=== PATIENT | male | born 1960 | race Caucasian/White ===

== ENCOUNTER 2016-08-01 10:27 | Observation (INO) | payer OTHER ==
--- NOTE | 2016-08-01 11:01 | ER Document Report ---
ED Medical Screen (RME) - General Mode of Arrival: Wheelchair Information source: Patient TRAVEL OUTSIDE OF THE [place] IN LAST 30 DAYS: No - HPI Patient complains to provider of: Right rib pain Onset: Other - 1.5 weeks ago Onset/Duration: Constant, Worse Associated Symptoms: Other - see notes above Exacerbated by: Deep breathing - Related Data Smoking: Non-smoker Frequency of alcohol use: None Drug Abuse: None - General Chief Complaint: Chest Pain > 30 Stated Complaint: ABDOMINAL PAIN Time Seen by Provider: 08/01/16 10:54 Notes: 56-year-old male with history of depression and PTSD presents to the ED complaining of constant and gradually worsening sharp right rib pain that started 1.5 weeks ago. Patient reports that he fell in his boat 2 weeks ago, but does not believe that it is associated with his current pain. Patient did not experience any pain immediately after falling. Patient has never experienced pain like this before. Pain is exacerbated with deep breathing. Patient also complains of mild shortness of breath. (BEBETO TORRES) - Related Data Allergies/Adverse Reactions: No Known Allergies Allergy (Verified 08/01/16 10:33) Past Medical History - General Information source: Patient - Social History Cigarette use (# per day): No Chew tobacco use (# tins/day): No Frequency of alcohol use: None Drug Abuse: None Family history: Reviewed & Not Pertinent - Past Medical History Cardiac Medical History: Reports: Hx Hypercholesterolemia Pulmonary Medical History: Reports: Hx Pneumonia Endocrine Medical History: Reports: Hx Diabetes Mellitus Type 2 Renal/ Medical History: Denies: Hx Peritoneal Dialysis GI Medical History: Reports: Hx Gastroesophageal Reflux Disease Musculoskeltal Medical History: Reports Hx Arthritis Psychiatric Medical History: Reports: Hx Depression, Hx Post Traumatic Stress Disorder Past Surgical History: Reports: Hx Cholecystectomy, Hx Orthopedic Surgery - BACK X2 - Immunizations Hx Diphtheria, Pertussis, Tetanus Vaccination: Yes Review of Systems - Review of Systems Constitutional: No symptoms reported EENT: No symptoms reported Cardiovascular: No symptoms reported Respiratory: See HPI, Short of breath Gastrointestinal: No symptoms reported Genitourinary: No symptoms reported Male Genitourinary: No symptoms reported Musculoskeletal: See HPI, Other - right rib pain Skin: No symptoms reported Hematologic/Lymphatic: No symptoms reported Neurological/Psychological: No symptoms reported -: Yes All other systems reviewed and negative Physical Exam - General General appearance: Alert, Other - appears uncomfortable - Respiratory Respiratory status: No respiratory distress Chest status: Pain on movement, Pain with deep breathing Breath sounds: Normal Chest palpation: Normal - No tenderness to palpation of the left chest wall. Patient is in obvious pain with deep breathing and movement of upper torso. No lesions or signs of shingles noted. - Cardiovascular Rhythm: Regular Heart sounds: Normal auscultation Murmur: No Friction rub: No Gallop: None auscultated - Abdominal Inspection: Normal Distension: No distension Tenderness: Tender - mild LUQ tenderness to palpation Course - Re-evaluation Re-evalutation: 08/01/16 11:02 Concern for pneumothorax and possible splenic laceration or contusion due to fall. Will check chest x-ray and CAT scan. (DELPHINE CEJA) - Vital Signs Vital signs: Temp Pulse Resp BP Pulse Ox 98.2 F 81 18 149/108 H 98 08/01/16 10:35 08/01/16 10:35 08/01/16 10:35 08/01/16 10:35 08/01/16 10:35 Scribe Documentation - Scribe Written by Gaelibe:: Agustin De Leon, 08/01/2016 1156 acting as scribe for :: Irma
[2016-08-01] MEDS ORDERED: HYDROCODONE/ACETAMINOPHEN 5-325 MG TABLET PO ONE (11:03)
--- NOTE | 2016-08-01 11:13 | EKG REPORT ---
SEVERITY:- NORMAL ECG - SINUS RHYTHM : Confirmed by: Luis Proctor 01-Aug-2016 11:11:24
[2016-08-01 12:00] LABS: APPEARANCE,URINE SLIGHTLY-CLOUDY; BILIRUBIN,URINE NEGATIVE (NEGATIVE); GLUCOSE, URINE NEGATIVE (NEGATIVE); KETONES,URINE NEGATIVE (NEGATIVE); LEUKOCYTE ESTERASE,URINE NEGATIVE (NEGATIVE); NITRITE,URINE NEGATIVE (NEGATIVE); PROTEIN,URINE NEGATIVE (NEGATIVE); URINE SPECIFIC GRAVITY 1.027; UROBILINOGEN,URINE NEGATIVE mg/dL (<2.0)
[2016-08-01] MEDS ORDERED: ONDANSETRON HCL INJ/PF 4 MG/2 ML SDV IV ONE (12:10)
[2016-08-01] MEDS ORDERED: MORPHINE SULFATE 10 MG/ML INJ IV ONE (12:10)
[2016-08-01 12:12] LABS: ABSOLUTE EOSINOPHILS # (AUTO) 0.1 10^3/uL (0.0-0.6); ABSOLUTE LYMPHOCYTES (AUTO) 2.1 10^3/uL (0.5-4.7); ABSOLUTE MONOCYTES (AUTO) 0.6 10^3/uL (0.1-1.4); ABSOLUTE NEUT (AUTO) 3.6 10^3/uL (1.7-8.2); BASOPHILS % (AUTO) 0.4 % (0-2); HEMATOCRIT 40.8 % (37.9-51.0); HEMOGLOBIN 13.3 g/dL (13.5-17.0); HGB HCT DIFFERENCE -0.9; LYMPHOCYTES % (AUTO) 32.8 % (13-45); MEAN CORPUSCULAR HEMOGLOBIN 29.2 pg (27.0-33.4); MEAN CORPUSCULAR HGB CONC 32.6 g/dL (32.0-36.0); MEAN CORPUSCULAR VOLUME 90 fl (80-97); MONOCYTES % (AUTO) 9.3 % (3-13); RED BLOOD COUNT 4.55 10^6/uL (4.35-5.55); RED CELL DISTRIBUTION WIDTH 13.8 % (11.5-14.0); SEGMENTED NEUTROPHILS % (AUTO) 55.5 % (42-78); WHITE BLOOD COUNT 6.4 10^3/uL (4.0-10.5)
[2016-08-01 12:16] LABS: PROTHROMBIN TIME 12.8 SEC (11.4-15.4)
[2016-08-01 12:37] LABS: ALANINE AMINOTRANSFERASE 45 U/L (21-72); ALBUMIN 4.5 g/dL (3.5-5.0); ALKALINE PHOSPHATASE 84 U/L (38-126); ANION GAP 14 (5-19); ASPARTATE AMINO TRANSFERASE 29 U/L (17-59); BILIRUBIN,DIRECT 0.4 mg/dL (0.0-0.4); BILIRUBIN,TOTAL 0.7 mg/dL (0.2-1.3); BLOOD UREA NITROGEN 19 mg/dL (7-20); CALCIUM 9.7 mg/dL (8.4-10.2); CARBON DIOXIDE 25 mmol/L (22-30); CHLORIDE 104 mmol/L (98-107); CREATINE KINASE 35 U/L (55-170); GLUCOSE 103 mg/dL (75-110); LIPASE 46.7 U/L (23-300); POTASSIUM 4.5 mmol/L (3.6-5.0); SODIUM 143.4 mmol/L (137-145); TOTAL PROTEIN 7.1 g/dL (6.3-8.2)
[2016-08-01] MEDS ORDERED: HYDROMORPHONE HCL INJ/PF 2 MG/ML AMPULE IV ONE ×3 (12:45→17:01)
[2016-08-01 12:49] LABS: CREATINE KINASE MB 0.57 ng/mL (<4.55)
[2016-08-01 12:53] LABS: TROPONIN I < 0.012 ng/mL
--- NOTE | 2016-08-01 13:10 | ER Document Report ---
ED GI/ - General Chief Complaint: Chest Pain > 30 Stated Complaint: ABDOMINAL PAIN Time Seen by Provider: 08/01/16 10:54 Mode of Arrival: Wheelchair Information source: Patient Notes: 56-year-old male past medical history as recorded who presents today with pain to his left lower lateral ribs starting to slowly progressing in intensity for 1 week. Patient denies any real shortness of breath. He denies any nausea, vomiting, or fevers. He states it feels better when he sits up or and is more painful when he moves side to side or lays flat. Patient has had no recent trauma except for when he fell on 2 weeks ago on . He denies any pain at that time. Patient denies any pain to his epigastric area, or left upper quadrant of the abdomen. Patient states some mild shortness of breath. He denies any radiation of the pain to his back. TRAVEL OUTSIDE OF THE [place] IN LAST 30 DAYS: No - HPI Patient complains to provider of: Other - Left lower rib pain Onset: Other - See above Timing/Duration: Gradual Quality of pain: Achy, Burning Severity at maximum: Severe Severity in ED: Severe Pain Level: 4 Location: Chest pain Sexual history: Inactive Associated symptoms: Other - 08/01/16 13:04 Exacerbated by: Other - 08/01/16 13:04 Relieved by: Denies Similar symptoms previously: No Recently seen / treated by doctor: No - Related Data Allergies/Adverse Reactions: No Known Allergies Allergy (Verified 08/01/16 10:33) Past Medical History - General Information source: Patient - Social History Smoking Status: Unknown if Ever Smoked Cigarette use (# per day): No Chew tobacco use (# tins/day): No Frequency of alcohol use: None Drug Abuse: None Family History: Reviewed & Not Pertinent Patient has suicidal ideation: No Patient has homicidal ideation: No - Past Medical History Cardiac Medical History: Reports: Hx Hypercholesterolemia Denies: Hx Coronary Artery Disease, Hx Heart Attack, Hx Hypertension Pulmonary Medical History: Reports: Hx Pneumonia Denies: Hx Asthma, Hx Bronchitis, Hx COPD Neurological Medical History: Denies: Hx Cerebrovascular Accident, Hx Seizures Endocrine Medical History: Reports: Hx Diabetes Mellitus Type 2 Renal/ Medical History: Denies: Hx Peritoneal Dialysis GI Medical History: Reports: Hx Gastroesophageal Reflux Disease Musculoskeltal Medical History: Reports Hx Arthritis Psychiatric Medical History: Reports: Hx Depression, Hx Post Traumatic Stress Disorder Past Surgical History: Reports: Hx Cholecystectomy, Hx Orthopedic Surgery - BACK X2. Denies: Hx Pacemaker - Immunizations Hx Diphtheria, Pertussis, Tetanus Vaccination: Yes Review of Systems - Review of Systems Constitutional: denies: Fever EENT: denies: Eye discharge, Nose discharge Cardiovascular: denies: Palpitations, Heart racing Respiratory: Short of breath Gastrointestinal: denies: Abdomen distended, Vomiting Genitourinary: denies: Dysuria Musculoskeletal: denies: Leg swelling Skin: Other - no hives. denies: Rash Neurological/Psychological: Other - no slurred speech -: Yes All other systems reviewed and negative Physical Exam - Vital signs Vitals: Temp Pulse Resp BP Pulse Ox 98.2 F 81 18 149/108 H 98 08/01/16 10:35 08/01/16 10:35 08/01/16 10:35 08/01/16 10:35 08/01/16 10:35 Notes: Reviewed vital signs and nursing note as charted by RN. CONSTITUTIONAL: Alert and oriented and responds appropriately to questions. Patient appears to be in intermittent acute pain holding his left lateral lower ribs. HEAD: Normocephalic; atraumatic EYES: Sclera nonicteric CARD: Regular rate and rhythm; no murmurs, no clicks, no rubs, no gallops; symmetric distal pulses RESP: Normal chest excursion without splinting or tachypnea; patient has no obvious tenderness to the left lower lateral ribs, no crepitus, no swelling, and no erythema; breath sounds clear and equal bilaterally; no wheezes, no rhonchi, no rales ABD/GI: Normal bowel sounds; non-distended; soft, non-tender to deep palpation of all 4 quadrants of the abdomen, no rebound, no guarding; no palpable organomegaly or masses BACK: The back appears normal and is non-tender to palpation, there is no CVA tenderness EXT: Normal ROM in all joints; non-tender to palpation; no cyanosis, no effusions, no edema SKIN: Normal color for age and race; warm; dry; good turgor; capillary refill < 2 seconds; no acute lesions noted NEURO: Moves all extremities equally; Motor and sensory function intact PSYCH: The patient's mood and manner are appropriate. Grooming and personal hygiene are appropriate. Course - Re-evaluation Re-evalutation: 08/01/16 13:12 Given the above history and physical examination we will order cardiac panel, portable x-ray of the chest, and a CT scan of the chest abdomen and pelvis. Patient has no obvious tenderness to his left upper quadrant or epigastric region. He does not have a gallbladder. Patient's pain came on slowly over a week and has no tenderness or radiation to his back. I believe it does make aortic dissection less likely. However, given the amount of pain that the patient is suffering, CT scans have been ordered. Pain medications have been given. Vital signs are stable, the patient is not tachycardic, he is not hypoxic, and blood pressure was 150/95. EKG showed a heart rate of 81, normal sinus rhythm, normal axis, no obvious ST elevation or depression. 08/01/16 13:35 Portable x-ray of the chest shows no obvious abnormalities. 08/01/16 15:[address] scans have been performed they have not yet been interpreted. I have called the radiology room to try to determine why this is. 08/01/16 16:33 CT scans as recorded. Patient's pain has returned once again. He is still clutching his left side of his lateral lower ribs and screaming in pain. He states it is intermittent and occurs every 5 minutes. No flank pain. No obvious hydronephrosis on CT scan. I have called the hospitalist for possible admission for pain control as I am unable to determine the patient's etiology of pain. - Vital Signs Vital signs: Temp Pulse Resp BP Pulse Ox 98.2 F 81 18 149/108 H 98 08/01/16 10:35 08/01/16 10:35 08/01/16 10:35 08/01/16 10:35 08/01/16 10:35 - Laboratory Result Diagrams: 08/01/16 11:56 08/01/16 11:56 Laboratory results interpreted by me: 08/01/16 08/01/16 11:56 11:56 Hgb 13.3 L Creatine Kinase 35 L Discharge - Discharge Clinical Impression: Rib pain on left side Condition: Fair Disposition: ADMITTED OBSERVATION Unit Admitted: Telemetry
--- NOTE | 2016-08-01 13:27 | RADIOLOGY REPORT (SQ) ---
EXAM DESCRIPTION: CHEST SINGLE VIEW COMPLETED DATE/TIME: 08/01/2016 12:59 pm REASON FOR STUDY: 14, stat; left chest pain with sob COMPARISON: 10/04/2011 EXAM PARAMETERS: NUMBER OF VIEWS: One view. TECHNIQUE: Single frontal radiographic view of the chest acquired. RADIATION DOSE: NA LIMITATIONS: None. FINDINGS: LUNGS AND PLEURA: No opacities, masses or pneumothorax. No pleural effusion. MEDIASTINUM AND HILAR STRUCTURES: No masses. Contour normal. HEART AND VASCULAR STRUCTURES: Heart normal in size. Normal vasculature. BONES: No acute findings. HARDWARE: EKG leads overlie the chest OTHER: No other significant finding. IMPRESSION: NO ACUTE RADIOGRAPHIC FINDING IN THE CHEST. TECHNICAL DOCUMENTATION: JOB ID: [id number]
--- NOTE | 2016-08-01 15:56 | RADIOLOGY REPORT (SQ) ---
EXAM DESCRIPTION: CTA CHEST COMPLETED DATE/TIME: 08/01/2016 1:31 pm REASON FOR STUDY: 14, left rib pain COMPARISON: None. TECHNIQUE: CT scan of the chest performed using helical scanning technique with dynamic intravenous contrast injection. Images reviewed with lung, soft tissue and bone windows. Reconstructed coronal and sagittal MPR images reviewed. Additional 3 dimensional post-processing performed to develop Maximal Intensity Projection images (NH P). All images stored on PACS. All CT scanners at this facility use dose modulation, iterative reconstruction, and/or weight based d osing when appropriate to reduce radiation dose to as low as reasonably achievable (ALARA). [facility]: Dose Right [facility]: CareDose [facility]: Dose Right [facility]: Teradose 4D [facility]: vWise CONTRAST TYPE AND DOSE: contrast/concentration: Isovue 370.00 mg/ml; Total Contrast Delivered: 95.0 ml; Total Saline Delivered: 80.0 ml RENAL FUNCTION: Creatinine 0.9 BUN 19 RADIATION DOSE: Up-to-date CT equipment and radiation dose reduction techniques were employed. CTDIv ol: 15.2 - 19.8 mGy. DLP: 2512 mGy-cm. . LIMITATIONS: None. FINDINGS: LUNGS AND PLEURA: No masses, infiltrates, pneumothorax. No pleural effusions, calcificati ons. AORTA AND GREAT VESSELS: No aneurysm or dissection. HEART: No pericardial effusion. PULMONARY ARTERIES: No emboli visualized in the main pulmonary arteries or the segmental branches. HILAR AND MEDIASTINAL STRUCTURES: No identified masses or abnormal nodes. HARDWARE: None in the chest. UPPER ABDOMEN: See separate report of the CT of the abdomen. THYROID AND OTHER SOFT TISSUES: No masses. No adenopathy. BONES: No acute or significant finding. 3D MIPS: Confirm above findings. OTHER: No other significant finding. IMPRESSION: NORMAL CTA OF THE CHEST. NO PULMONARY EMBOLI. TECHNICAL DOCUMENTATION: JOB ID: [id number] Quality ID # [id number]: Final reports with documentation of one or more dose reduction techniques (e.g., Au tomated exposure control, adjustment of the mA and/or kV according to patient size, use of iterative reconstruction technique) 2010 [employer]- All Rights Reserved
--- NOTE | 2016-08-01 16:04 | RADIOLOGY REPORT (SQ) ---
EXAM DESCRIPTION: CT ABD/PELVIS WITH IV ONLY COMPLETED DATE/TIME: 08/01/2016 1:31 pm REASON FOR STUDY: fall, LUQ pain COMPARISON: None. TECHNIQUE: CT scan of the abdomen and pelvis performed using helical scanning technique with dynamic intravenous contrast injection. No oral contrast. Images reviewed with lung, soft tissue, and bone windows. Reconstructed coronal and sagittal MPR images reviewed. Delayed images for evaluation of the urinary system also acquired. All images stored on PACS. All CT scanners at this facility use dose modulation, iterative reconstruction, and/or weight based d osing when appropriate to reduce radiation dose to as low as reasonably achievable (ALARA). [facility]: Dose Right [facility]: CareDose [facility]: Dose Right [facility]: Teradose 4D [facility]: [employer] CONTRAST TYPE AND DOSE: 95 cc Isovue 370- low osmolar. RENAL FUNCTION: BUN 19 creatinine 0.9 RADIATION DOSE: Total DLP: 2511.6 mGy*cm, total for both studies. LIMITATIONS: None. FINDINGS: LOWER CHEST: See separate report of the CT of the chest. LIVER: Normal size. No masses or dilated ducts. SPLEEN: Normal size. No focal lesions. PANCREAS: No masses. No significant calcifications. No adjacent inflammation or peripancreatic fluid collections. Pancreatic duct not dilated. GALLBLADDER: Surgically absent. ADRENAL GLANDS: No significant masses or asymmetry. RIGHT KIDNEY AND URETER: No solid masses. No significant calcifications. No hydronephrosis or hyd roureter. LEFT KIDNEY AND URETER: No solid masses. No significant calcifications. No hydronephrosis or hydr oureter. AORTA AND VESSELS: No aneurysm. No dissection. Renal arteries, SMA, celiac without stenosis. RETROPERITONEUM: No retroperitoneal adenopathy, hemorrhage or masses. BOWEL AND PERITONEAL CAVITY: No masses or inflammatory changes. No free fluid or peritoneal masses. APPENDIX: Not identified. PELVIS: The urinary bladder is normal. Prostate gland and seminal vesicles appear normal. ABDOMINAL WALL: No masses. No hernias. BONES: No significant or acute findings. OTHER: No other significant finding. IMPRESSION: NO SIGNIFICANT OR ACUTE FINDING IN THE ABDOMEN OR PELVIS ON CT SCAN WITH IV CONTRAST. TECHNICAL DOCUMENTATION: JOB ID: [id number] Quality ID # [id number]: Final reports with documentation of one or more dose reduction techniques (e.g., Au tomated exposure control, adjustment of the mA and/or kV according to patient size, use of iterative reconstruction technique) 2010 [facility] [employer]- All Rights Reserved
[2016-08-01] MEDS ORDERED: ONDANSETRON HCL INJ/PF 4 MG/2 ML SDV IV PRN (16:55)
[2016-08-01] MEDS ORDERED: ACETAMINOPHEN 325 MG TABLET PO PRN (16:55)
--- NOTE | 2016-08-01 17:07 | PDOC H&P ---
History of Present Illness Admission Date/PCP: 08/01/16 16:49 NO LOCALMD Patient complains of: Left flank pain History of Present Illness: TRINO FARRAR is a 56 year old male with past medical history of degenerative disc disease, chronic lumbar spine pain presents with one-week worsening left flank pain. Today his pain has become unbearable and he presented to the emergency department. Evaluation in the emergency department to include lab work, urinalysis, CT scan chest/abdomen/pelvis are all unremarkable. Patient is noted to be writhing in pain in the emergency department and states she will not go home until he understands why he is in such severe pain. She has had prior lumbar spine surgery in [facility]. Past Medical History Cardiac Medical History: Reports: Hyperlipidema Denies: Coronary Artery Disease, Myocardial Infarction, Hypertension Pulmonary Medical History: Reports: Pneumonia Denies: Asthma, Bronchitis, Chronic Obstructive Pulmonary Disease (COPD) Neurological Medical History: Denies: Seizures Endocrine Medical History: Reports: Diabetes Mellitus Type 2 GI Medical History: Reports: Gastroesophageal Reflux Disease Musculoskeltal Medical History: Reports: Arthritis Psychiatric Medical History: Reports: Depression, Post Traumatic Stress Disorder Hematology: Denies: Anemia Past Surgical History Past Surgical History: Reports: Cholecystectomy, Orthopedic Surgery - BACK X2 Denies: Pacemaker Social History Information Source: Patient Lives with: Family Smoking Status: Unknown if Ever Smoked Frequency of Alcohol Use: None Hx Recreational Drug Use: No Hx Prescription Drug Abuse: No - Advance Directive Resuscitation Status: Full Code Family History Family History: Reviewed & Not Pertinent Parental Family History Reviewed: Yes Children Family History Reviewed: Yes Sibling(s) Family History Reviewed.: Yes Medication/Allergy Allergies/Adverse Reactions: No Known Allergies Allergy (Verified 08/01/16 10:33) Review of Systems Constitutional: ABSENT: chills, fever(s), headache(s), weight gain, weight loss Eyes: ABSENT: visual disturbances Ears: ABSENT: hearing changes Cardiovascular: ABSENT: chest pain, dyspnea on exertion, edema, orthropnea, palpitations Respiratory: ABSENT: cough, hemoptysis Gastrointestinal: ABSENT: abdominal pain, constipation, diarrhea, hematemesis, hematochezia, nausea, vomiting Genitourinary: ABSENT: dysuria, hematuria Musculoskeletal: PRESENT: back pain. ABSENT: joint swelling Integumentary: ABSENT: rash, wounds Neurological: ABSENT: abnormal gait, abnormal speech, confusion, dizziness, focal weakness, syncope Psychiatric: ABSENT: anxiety, depression, homidical ideation, suicidal ideation Endocrine: ABSENT: cold intolerance, heat intolerance, polydipsia, polyuria Hematologic/Lymphatic: ABSENT: easy bleeding, easy bruising Physical Exam Vital Signs: Temp Pulse Resp BP Pulse Ox 98.2 F 81 18 149/108 H 98 08/01/16 10:35 08/01/16 10:35 08/01/16 10:35 08/01/16 10:35 08/01/16 10:35 PHYSICAL EXAM: GENERAL: Appears well, no acute distress HEENT: Normocephalic, no scleral icterus, conjunctiva clear, EOEM intact, PERRLA , moist mucous membranes NECK: trachea midline, no thyromegally RESPIRATORY: Clear to auscultation, no wheezes/rhonchi CARDIAC: Regular rate and rhythm, no murmur/miko/rub ABDOMEN: Soft, no distension, no tenderness, no guarding, normal bowel sounds, negative Soni sign RECTAL: deferred : deferred EXTREMITIES: No edema, cyanosis, clubbing MUSCULOSKELETAL: Reproducible tenderness over left thoracic paraspinous muscles , pain with range of motion thoracic spine VASCULAR: normal peripheral pulses NEUROLOGIC: Alert, oriented to person/place/time, normal speech, cranial nerves grossly intact, 5/5 strength in all extremities, tactile sensation intact in all extremities SKIN: No rash, no wounds, no worrisome skin lesions. Specifically no evidence of zoster over thoracic or lumbar spine PSYCHIATRIC: Normal mood, normal affect Results Laboratory Results: Labs- All tests 24 hr 08/01/16 08/01/16 08/01/16 11:40 11:56 11:56 WBC 6.4 RBC 4.55 Hgb 13.3 L Hct 40.8 MCV 90 MCH 29.2 MCHC 32.6 RDW 13.8 Plt Count 186 Seg Neutrophils % 55.5 Lymphocytes % 32.8 Monocytes % 9.3 Eosinophils % 2.0 Basophils % 0.4 Absolute Neutrophils 3.6 Absolute Lymphocytes 2.1 Absolute Monocytes 0.6 Absolute Eosinophils 0.1 Absolute Basophils 0.0 PT 12.8 INR 0.90 Sodium Potassium Chloride Carbon Dioxide Anion Gap BUN Creatinine Est GFR ( Amer) Est GFR (Non-Af Amer) Glucose Calcium Total Bilirubin Direct Bilirubin Indirect Bilirubin Neonat Total Bilirubin AST ALT Alkaline Phosphatase Creatine Kinase CK-MB (CK-2) Troponin I Total Protein Albumin Lipase Urine Color YELLOW Urine Appearance SLIGHTLY-CLOUDY Urine pH 5.0 Ur Specific [place] 1.027 Urine Protein NEGATIVE Urine Glucose (UA) NEGATIVE Urine Ketones NEGATIVE Urine Blood NEGATIVE Urine Nitrite NEGATIVE Urine Bilirubin NEGATIVE Urine Urobilinogen NEGATIVE Ur Leukocyte Esterase NEGATIVE Urine WBC (Auto) 1 Urine RBC (Auto) 1 Urine Mucus (Auto) FEW Urine Ascorbic Acid NEGATIVE 08/01/16 08/01/16 11:56 11:56 WBC RBC Hgb Hct MCV MCH MCHC RDW Plt Count Seg Neutrophils % Lymphocytes % Monocytes % Eosinophils % Basophils % Absolute Neutrophils Absolute Lymphocytes Absolute Monocytes Absolute Eosinophils Absolute Basophils PT INR Sodium 143.4 Potassium 4.5 Chloride 104 Carbon Dioxide 25 Anion Gap 14 BUN 19 Creatinine 0.90 Est GFR ( Amer) > 60 Est GFR (Non-Af Amer) > 60 Glucose 103 Calcium 9.7 Total Bilirubin 0.7 Direct Bilirubin 0.4 Indirect Bilirubin Not Reportable Neonat Total Bilirubin Not Reportable AST 29 ALT 45 Alkaline Phosphatase 84 Creatine Kinase 35 L CK-MB (CK-2) 0.57 Troponin I < 0.012 Total Protein 7.1 Albumin 4.5 Lipase 46.7 Urine Color Urine Appearance Urine pH Ur Specific [place] Urine Protein Urine Glucose (UA) Urine Ketones Urine Blood Urine Nitrite Urine Bilirubin Urine Urobilinogen Ur Leukocyte Esterase Urine WBC (Auto) Urine RBC (Auto) Urine Mucus (Auto) Urine Ascorbic Acid Impressions: Abdomen/Pelvis CT 08/01/16 11:01 IMPRESSION: NO SIGNIFICANT OR ACUTE FINDING IN THE ABDOMEN OR PELVIS ON CT SCAN WITH IV CONTRAST. Chest X-Ray 08/01/16 12:45 IMPRESSION: NO ACUTE RADIOGRAPHIC FINDING IN THE CHEST. Chest/Abdomen CTA 08/01/16 12:46 IMPRESSION: NORMAL CTA OF THE CHEST. NO PULMONARY EMBOLI. Assessment & Plan - Diagnosis (1) Rib pain on left side Is this a current diagnosis for this admission?: YesPlan: CTA of chest normal. CT abdomen/pelvis normal. Labs are normal. Urinalysis normal. Check sed rate and C-reactive protein. Check MRI of thoracic and lumbar spine. (2) Chronic pain Is this a current diagnosis for this admission?: YesPlan: Associated with lumbar disc disease. Patient has had multiple back surgeries in [facility]. As needed Percocet for now. - Time Time Spent: 50 to 70 Minutes Anticipated discharge: Home Within: within 24 hours
[2016-08-01 18:09] LABS: CREATINE KINASE MB 0.44 ng/mL (<4.55)
[2016-08-01] MEDS: OXYCODONE-ACETAMINOPHEN 5-325 MG TABLET PO PRN (18:10)
[2016-08-01 18:14] LABS: TROPONIN I < 0.012 ng/mL
--- NOTE | 2016-08-01 20:33 | RADIOLOGY REPORT (SQ) ---
EXAM DESCRIPTION: MRI THORACIC SPINE COMBO COMPLETED DATE/TIME: 08/01/2016 8:08 pm REASON FOR STUDY: mid-back/left flank pain COMPARISON: None. TECHNIQUE: Sagittal and Axial imaging includes T1, T2, STIR and gradient echo sequences. T1 post ga dolinium sequences. CONTRAST TYPE AND DOSE: 20 mL Prohance. RENAL FUNCTION: GFR > 60. LIMITATIONS: None. FINDINGS: LOCALIZER: No worrisome findings. ALIGNMENT: Normal. VERTEBRAE: Intact. BONE MARROW: Normal. No marrow replacement or reactive changes. HARDWARE: None in the spine. CORD: Normal in size and signal intensity. SOFT TISSUES: No soft tissue masses. THORACIC DISCS T1-T12: No significant spinal stenosis or exit foraminal stenosis. LOWER CERVICAL: Incompletely imaged. No significant spinal stenosis or exit foraminal stenosis. UPPER LUMBAR: Incompletely imaged. No significant spinal stenosis or exit foraminal stenosis. ENHANCEMENT: No abnormal enhancement. OTHER: No other significant finding. IMPRESSION: NORMAL MRI THORACIC SPINE. TECHNICAL DOCUMENTATION: JOB ID: [id number] [employer]- All Rights Reserved
--- NOTE | 2016-08-01 20:42 | RADIOLOGY REPORT (SQ) ---
EXAM DESCRIPTION: MRI LUMBAR SPINE COMBO COMPLETED DATE/TIME: 08/01/2016 8:07 pm REASON FOR STUDY: mid-back/left flank pain COMPARISON: 06/14/2014 CT 08/01/2016 TECHNIQUE: Sagittal and Axial imaging includes T1, T1 post gadolinium, T2, STIR and gradient echo se quences. Coronal T2/HASTE imaging. CONTRAST TYPE AND DOSE: 20 mL Multihance. RENAL FUNCTION: GFR > 60. LIMITATIONS: None. FINDINGS: VISUALIZED UPPER ABDOMEN: Limited evaluation. No acute or suspicious findings suggested. SEGMENTATION: No transitional anatomy. The lowest well-developed disc space is labeled L5-S1. ALIGNMENT: Anatomic. VERTEBRAE: Intact. No fractures. BONE MARROW: Reactive marrow edema L4-5. DISC SIGNAL: Normal. No significant abnormal signal or loss of height. POSTERIOR ELEMENTS: Generally intact. No pars defect evident. HARDWARE: None in the spine. CORD AND CONUS: Normal in size and signal intensity. Conus at the appropriate level. SOFT TISSUES: No aortic aneurysm seen. No bulky retroperitoneal adenopathy or mass. No paraspinal mas s or fluid. L1-L2: No significant spinal stenosis or exit foraminal stenosis. L2-L3: No significant spinal stenosis or exit foraminal stenosis. Disc prostheses. Pedicle screws. Left laminectomy. L3-L4: No significant spinal stenosis or exit foraminal stenosis. Disc prosthesis. Pedicle screws. Left laminectomy. L4-L5: New generalized protrusion since the previous study. Disc prosthesis. Pedicle screws. Narro wing of both exit foramina. L5-S1: No significant spinal stenosis or exit foraminal stenosis. LOWER THORACIC: Incompletely imaged. No stenosis seen. SACRUM: Visualized upper sacrum intact. ENHANCEMENT: No abnormal enhancement. OTHER: No other significant findings. IMPRESSION: Extensive postsurgical changes. There is a new generalize disc protrusion at L4-5 since the previous study. Narrowing of both exit f oramina. TECHNICAL DOCUMENTATION: JOB ID: [id number] [employer]- All Rights Reserved
[2016-08-01] MEDS: HYDROMORPHONE HCL 2 MG TABLET PO PRN (22:05)
[2016-08-01 23:53] LABS: CREATINE KINASE MB 0.57 ng/mL (<4.55)
[2016-08-01 23:57] LABS: TROPONIN I < 0.012 ng/mL
[2016-08-02] MEDS: OXYCODONE-ACETAMINOPHEN 5-325 MG TABLET PO PRN ×2 (00:06→07:15)
[2016-08-02] MEDS: HYDROMORPHONE HCL 2 MG TABLET PO PRN ×2 (03:44→09:43)
[2016-08-02] MEDS ORDERED: MAG HYDROX/AL HYDROX/SIMETH SUSP 30 ML UDCUP PO PRN (03:59)
[2016-08-02 05:44] LABS: CREATINE KINASE MB 0.72 ng/mL (<4.55)
[2016-08-02 05:46] LABS: TROPONIN I < 0.012 ng/mL
[2016-08-02 08:00] VITALS: BP 117/64
[2016-08-02] MEDS ORDERED: ENOXAPARIN SODIUM INJ 40 MG/0.4 ML DISP.SYRIN SUBCUT SCH (08:00)
--- NOTE | 2016-08-02 09:13 | PDOC DISCHARGE SUMMARY ---
General - Admit/Disc Date/PCP Admission Date/Primary Care Provider: 08/01/16 16:56 Dr. Maximino Tucker Discharge Date: 08/02/16 - Discharge Diagnosis (1) Rib pain on left side Is this a current diagnosis for this admission?: Yes (2) Chronic pain Is this a current diagnosis for this admission?: Yes - Additional Information Resuscitation Status: Full Code Discharge Diet: Regular Discharge Activity: Activity As Tolerated Home Medications: Bupropion HCl [Wellbutrin Sr] 150 mg PO Q12 08/01/16 Escitalopram Oxalate [Lexapro] 20 mg PO DAILY 08/01/16 Meloxicam [Mobic 15 mg Tablet] 15 mg PO DAILY 08/01/16 Omeprazole 20 mg PO DAILY 08/01/16 Ranitidine HCl [Zantac 150 mg Tablet] 150 mg PO BID 08/01/16 Simvastatin 40 mg PO DAILY 08/01/16 Sumatriptan Succinate [Imitrex 50 mg Tablet] 50 mg PO PRN PRN 08/01/16 Valsartan [Diovan 80 mg Tablet] 80 mg PO DAILY 08/01/16 Hydrocodone/Acetaminophen [Vicodin Es 7.5-300 mg Tablet] 1 tab PO Q6HP PRN #30 tablet 08/02/16 History of Present Illness Patient complains of: Left flank pain History of Present Illness: TRINO FARRAR is a 56 year old male with past medical history of degenerative disc disease, chronic lumbar spine pain presents with one-week worsening left flank pain. Today his pain has become unbearable and he presented to the emergency department. Evaluation in the emergency department to include lab work, urinalysis, CT scan chest/abdomen/pelvis are all unremarkable. Patient is noted to be writhing in pain in the emergency department and states she will not go home until he understands why he is in such severe pain. She has had prior lumbar spine surgery in [facility]. Hospital Course Hospital Course: Patient was admitted for evaluation of left flank pain. Laboratory workup was negative. Urinalysis is negative. CT angiogram of the chest was normal. CT of the abdomen and pelvis showed no acute process. MRI of the thoracic spine was normal. MRI of the lumbar spine showed L4-L5 disc protrusion and postoperative changes. Patient's pain is thought to be musculoskeletal in nature likely precipitated by recently holding grandchild frequently over the past several days. We will treat him symptomatically with pain medication. He is advised to avoid heavy lifting, bending, pushing, pulling. Follow-up with primary care provider. Physical Exam Vital Signs: Temp Pulse Resp BP Pulse Ox 97.4 F 56 L 16 117/64 100 08/02/16 07:59 08/02/16 07:59 08/02/16 07:59 08/02/16 07:59 08/02/16 07:59 Intake & Output 08/01/16 08/02/16 08/03/16 06:59 06:59 06:59 Intake Total 500 Balance 500 Weight 95.9 kg GENERAL: No acute distress HEENT: Conjunctiva clear, nonicteric, moist mucous membranes, no JVD, midline trachea RESPIRATORY: Clear to auscultation bilaterally, no wheezes, no rhonchi CARDIAC: Regular rate and rhythm, no murmurs/gallops/rubs ABDOMEN: Soft, nondistended, nontender, positive bowel sounds, no rebound, no guarding EXTREMETIES: No edema, cyanosis, clubbing NEUROLOGIC: Alert, oriented to person/place/time, CN's grossly intact, no focal deficits SKIN: No rash, wounds PSYCH: Normal mood, normal affect Results Laboratory Results: 08/01/16 17:20 C-Reactive Protein 11.5 H 08/01/16 08/01/16 08/01/16 17:20 17:20 23:17 Creatine Kinase 33 L 38 L CK-MB (CK-2) 0.44 Troponin I < 0.012 08/01/16 08/02/16 08/02/16 23:17 04:50 04:50 Creatine Kinase 45 L CK-MB (CK-2) 0.57 0.72 Troponin I < 0.012 < 0.012 Labs- Last Values WBC 6.4 10^3/uL (4.0-10.5) 08/01/16 11:56 RBC 4.55 10^6/uL (4.35-5.55) 08/01/16 11:56 Hgb 13.3 g/dL (13.5-17.0) L 08/01/16 11:56 Hct 40.8 % (37.9-51.0) 08/01/16 11:56 MCV 90 fl (80-97) 08/01/16 11:56 MCH 29.2 pg (27.0-33.4) 08/01/16 11:56 MCHC 32.6 g/dL (32.0-36.0) 08/01/16 11:56 RDW 13.8 % (11.5-14.0) 08/01/16 11:56 Plt Count 186 10^3/uL (150-450) 08/01/16 11:56 Seg Neutrophils % 55.5 % (42-78) 08/01/16 11:56 Lymphocytes % 32.8 % (13-45) 08/01/16 11:56 Monocytes % 9.3 % (3-13) 08/01/16 11:56 Eosinophils % 2.0 % (0-6) 08/01/16 11:56 Basophils % 0.4 % (0-2) 08/01/16 11:56 Absolute Neutrophils 3.6 10^3/uL (1.7-8.2) 08/01/16 11:56 Absolute Lymphocytes 2.1 10^3/uL (0.5-4.7) 08/01/16 11:56 Absolute Monocytes 0.6 10^3/uL (0.1-1.4) 08/01/16 11:56 Absolute Eosinophils 0.1 10^3/uL (0.0-0.6) 08/01/16 11:56 Absolute Basophils 0.0 10^3/uL (0.0-0.2) 08/01/16 11:56 ESR 26 mm/hr (0-20) H 08/01/16 17:20 PT 12.8 SEC (11.4-15.4) 08/01/16 11:56 INR 0.90 08/01/16 11:56 Sodium 143.4 mmol/L (137-145) 08/01/16 11:56 Potassium 4.5 mmol/L (3.6-5.0) 08/01/16 11:56 Chloride 104 mmol/L (98-107) 08/01/16 11:56 Carbon Dioxide 25 mmol/L (22-30) 08/01/16 11:56 Anion Gap 14 (5-19) 08/01/16 11:56 BUN 19 mg/dL (7-20) 08/01/16 11:56 Creatinine 0.90 mg/dL (0.52-1.25) 08/01/16 11:56 Est GFR ( Amer) > 60 (>60) 08/01/16 11:56 Est GFR (Non-Af Amer) > 60 (>60) 08/01/16 11:56 Glucose 103 mg/dL (75-110) 08/01/16 11:56 Calcium 9.7 mg/dL (8.4-10.2) 08/01/16 11:56 Total Bilirubin 0.7 mg/dL (0.2-1.3) 08/01/16 11:56 Direct Bilirubin 0.4 mg/dL (0.0-0.4) 08/01/16 11:56 Indirect Bilirubin Not Reportable 08/01/16 11:56 Neonat Total Bilirubin Not Reportable 08/01/16 11:56 AST 29 U/L (17-59) 08/01/16 11:56 ALT 45 U/L (21-72) 08/01/16 11:56 Alkaline Phosphatase 84 U/L (38-126) 08/01/16 11:56 Creatine Kinase 45 U/L (55-170) L 08/02/16 04:50 CK-MB (CK-2) 0.72 ng/mL (<4.55) 08/02/16 04:50 Troponin I < 0.012 ng/mL 08/02/16 04:50 C-Reactive Protein 11.5 mg/L (<10.0) H 08/01/16 17:20 Total Protein 7.1 g/dL (6.3-8.2) 08/01/16 11:56 Albumin 4.5 g/dL (3.5-5.0) 08/01/16 11:56 Lipase 46.7 U/L (23-300) 08/01/16 11:56 Urine Color YELLOW 08/01/16 11:40 Urine Appearance SLIGHTLY-CLOUDY 08/01/16 11:40 Urine pH 5.0 (5.0-9.0) 08/01/16 11:40 Ur Specific [place] 1.027 08/01/16 11:40 Urine Protein NEGATIVE mg/dL (NEGATIVE) 08/01/16 11:40 Urine Glucose (UA) NEGATIVE mg/dL (NEGATIVE) 08/01/16 11:40 Urine Ketones NEGATIVE mg/dL (NEGATIVE) 08/01/16 11:40 Urine Blood NEGATIVE (NEGATIVE) 08/01/16 11:40 Urine Nitrite NEGATIVE (NEGATIVE) 08/01/16 11:40 Urine Bilirubin NEGATIVE (NEGATIVE) 08/01/16 11:40 Urine Urobilinogen NEGATIVE mg/dL (<2.0) 08/01/16 11:40 Ur Leukocyte Esterase NEGATIVE (NEGATIVE) 08/01/16 11:40 Urine WBC (Auto) 1 /HPF 08/01/16 11:40 Urine RBC (Auto) 1 /HPF 08/01/16 11:40 Urine Mucus (Auto) FEW /LPF 08/01/16 11:40 Urine Ascorbic Acid NEGATIVE (NEGATIVE) 08/01/16 11:40 Impressions: Lumbar Spine MRI 08/01/16 00:00 IMPRESSION: Extensive postsurgical changes. There is a new generalize disc protrusion at L4-5 since the previous study. Narrowing of both exit foramina. Thoracic Spine MRI 08/01/16 00:00 IMPRESSION: NORMAL MRI THORACIC SPINE. Abdomen/Pelvis CT 08/01/16 11:01 IMPRESSION: NO SIGNIFICANT OR ACUTE FINDING IN THE ABDOMEN OR PELVIS ON CT SCAN WITH IV CONTRAST. Chest X-Ray 08/01/16 12:45 IMPRESSION: NO ACUTE RADIOGRAPHIC FINDING IN THE CHEST. Chest/Abdomen CTA 08/01/16 12:46 IMPRESSION: NORMAL CTA OF THE CHEST. NO PULMONARY EMBOLI. Qualifiers PATEINT BEING DISCHARGED WITH ANY OF THE FOLLOWING DIAGNOSIS?: No Plan Time Spent: Less than 30 Minutes
--- NOTE | 2016-08-02 09:15 | EKG REPORT ---
SEVERITY:- NORMAL ECG - SINUS RHYTHM : Confirmed by: Luis Proctor 02-Aug-2016 09:14:16
--- NOTE | 2016-08-02 09:15 | EKG REPORT ---
SEVERITY:- NORMAL ECG - SINUS RHYTHM : Confirmed by: Luis Proctor 02-Aug-2016 09:14:19
== END 2016-08-02 10:24 | disposition home or self-care (01) ==
LOC: ER 10:27 → EH 16:49 → UNDOADMOB 16:49 → EH 16:56 → 5 20:56
PROVIDERS: ADMIT Family Medicine; ATTEND Family Medicine
DX: R07.81 Pleurodynia (principal); M51.36 Other intervertebral disc degeneration, lumbar region; M51.26 Other intervertebral disc displacement, lumbar region; R06.02 Shortness of breath; R10.812 Left upper quadrant abdominal tenderness; K21.9 Gastro-esophageal reflux disease without esophagitis; E78.5 Hyperlipidemia, unspecified; F32.9 Major depressive disorder, single episode, unspecified; Z79.1 Long term (current) use of non-steroidal anti-inflammatories (NSAID); Z79.891 Long term (current) use of opiate analgesic; Z80.49 Family history of malignant neoplasm of other genital organs; Z98.1 Arthrodesis status; Z87.01 Personal history of pneumonia (recurrent)
CPT/HCPCS: 93005 ×2; 96376; 99285; 96374; 96375; 36415 ×2; 82553 ×2; 82550 ×2; 83690; 85025; 85652; 85610; 86140; 80053; 81001; 84484 ×2; 72157; 72158; 71010; 71275; 74177; 93010 ×2; G0378 ×2; A9577; J2270; J1650; J1170; J3490; J2405

== ENCOUNTER → 2017-03-05 | Outpatient (CLI) | payer OTHER | LOC: OD 17:18 | PROVIDERS: ATTEND Nurse Practitioner Primary Care | DX: D17.9 Benign lipomatous neoplasm, unspecified (principal) | CPT/HCPCS: 88304 ==

== ENCOUNTER 2019-11-26 21:05 | Emergency (ER) | payer OTHER, MEDICARE ==
[2019-11-26] MEDS ORDERED: LORAZEPAM INJ 2 MG/1 ML VIAL IV ONE ×2 (21:38→22:31)
[2019-11-26] MEDS ORDERED: NORMAL SALINE 1000 ML 1,000 ML IV ONE (21:39)
--- NOTE | 2019-11-26 21:39 | ER Document Report ---
ED General - General Chief Complaint: Anxiety Stated Complaint: ANXIETY Time Seen by Provider: 11/26/19 21:23 Primary Care Provider: MILTON BUCKNER NP [Primary Care Provider] - Follow up as needed Information source: Patient TRAVEL OUTSIDE OF THE [place] IN LAST 30 DAYS: No - HPI Notes: Patient is a 59 y/o male with a history of depression and anxiety who presents with anxiety that began earlier this evening. Patient was brought in by EMS after becoming very anxious and dizzy which started at 19:30 today. Patient denies any pain, chest pain, shortness of breath and any other symptoms. He states he took all his regular medications today which he could not list. He reports drinking a beer today but denies any tobacco or recreational drug use. Patient is unable to recall full history due to his anxious state. arrived and she was able to provide a better history. She states that were eating dinner when he began to feel unwell. He began to feel anxious and became concerned and tried to drive him here. However, he was shaking so badly she could not get him in the car and called EMS. believes his symptoms may be due to his recent medication change from lexapro to duloxetine 1.5 months ago. She states he has had two panic attacks in the last two weeks and his dose of duloxetine was increased a week ago. She states today's episode is much worse than his usual panic attacks. Per records, patient has recent scripts for adderall and dextroamph amphetamine but states that he only takes adderall. Patient took his first dose of keflex today due to an infection to a surgical incision of his left lower extremity. - Related Data Allergies/Adverse Reactions: No Known Allergies Allergy (Verified 08/01/16 10:33) Past Medical History - General Information source: Patient - Social History Smoking Status: Unknown if Ever Smoked Frequency of alcohol use: Occasional Drug Abuse: None Family History: Reviewed & Not Pertinent - Past Medical History Cardiac Medical History: Reports: Hx Hypercholesterolemia Denies: Hx Coronary Artery Disease, Hx Heart Attack, Hx Hypertension Pulmonary Medical History: Reports: Hx Pneumonia Denies: Hx Asthma, Hx Bronchitis, Hx COPD Neurological Medical History: Denies: Hx Cerebrovascular Accident, Hx Seizures Endocrine Medical History: Reports: Hx Diabetes Mellitus Type 2 Renal/ Medical History: Denies: Hx Peritoneal Dialysis GI Medical History: Reports: Hx Gastroesophageal Reflux Disease Musculoskeletal Medical History: Reports Hx Arthritis Psychiatric Medical History: Reports: Hx Depression, Hx Post Traumatic Stress Disorder Past Surgical History: Reports: Hx Cholecystectomy, Hx Orthopedic Surgery - BACK X2. Denies: Hx Pacemaker - Immunizations Hx Diphtheria, Pertussis, Tetanus Vaccination: Yes Review of Systems - Review of Systems Constitutional: No symptoms reported EENT: No symptoms reported Cardiovascular: No symptoms reported Respiratory: No symptoms reported Gastrointestinal: No symptoms reported Genitourinary: No symptoms reported Male Genitourinary: No symptoms reported Musculoskeletal: No symptoms reported Skin: No symptoms reported Hematologic/Lymphatic: No symptoms reported Neurological/Psychological: See HPI Physical Exam - Vital signs Vitals: BP 127/73 H 11/26/19 21:20 - Notes Notes: PHYSICAL EXAMINATION: VITALS: Vitals reviewed and patient is tachycardic. GENERAL: Diaphoretic male writhing in the bed, yelling in moderate distress, HEAD: Atraumatic, normocephalic. EYES: Pupils equal round and reactive to light, conjunctiva are normal. ENT: Nares patent. Moist mucous membranes. NECK: Normal range of motion, supple without lymphadenopathy. LUNGS: Breath sounds clear to auscultation bilaterally and equal. No wheezes rales or rhonchi. HEART: Tachycardic with regular rhythm without murmurs. ABDOMEN: Soft, nontender, normoactive bowel sounds. No guarding, no rebound. No masses appreciated. EXTREMITIES: Walking boot in place on left ankle. Normal range of motion, no pit ting or edema. No cyanosis. NEUROLOGICAL: No focal neurological deficits. Moves all extremities s pontaneously and on command. PSYCH: Extremely anxious. Normal speech and able to answer questions appropriately. SKIN: Warm, Dry, normal turgor, no rashes or lesions noted. Course - Re-evaluation Re-evalutation: Patient is a 59 y/o male with a history of anxiety and depression who presents for anxiety and dizziness that began earlier this evening. Patient had a recent medication change from Lexapro to duloxetine 1.5 months ago and his dose of duloxetine was increased over a week ago. Patient is tachycardic with heart r ates in the 110s. On exam, patient is diaphoretic, writhing and shaking in bed. He appears very anxious and has a hard time answering questions due to his anxiety. Ativan 1mg IV ordered. 11/26/19 22:32 Patient continues to be extremely anxious, Ativan 2mg IV ordered. 11/27/19 00:28 Chest XR negative. WBC mildly elevated at 12.1. CMP unremarkable. Salicylates, acetaminophen and alcohol all negative. Urine still pending. 11/27/19 01:28 Per nursing, is concerned as patient is becoming severely anxious again. Another dose of Ativan 2mg IV ordered. 11/27/19 1:59 UDS resulted with high levels of amphetamines and positive THC. Patient takes adderall and dronabinol. 11/27/19 03:42 Patient reassessed, he continues to be restless and is actively hallucinating. He believes he is on the tailgate and can be seen reaching for things that are not there. UA negative. 11/27/19 06:15 Went to reassess the patient and he is sleeping. Discussed results with and concern for amphetamine abuse. We reviewed his recent prescribed medications together. Vitals signs are now within normal limits. Patient will be discharged home. I advised the the importance of following up with his PCP. I recommended skipping his adderall dosing until he is able to talk to his PCP. understands and is in agreement with plan. - Vital Signs Vital signs: Temp Pulse Resp BP Pulse Ox 97.9 F 9 L 170/90 H 98 11/27/19 06:49 11/27/19 06:49 11/27/19 06:49 11/27/19 06:49 - Laboratory Result Diagrams: 11/26/19 21:29 11/26/19 21:29 Laboratory results interpreted by me: 11/26/19 11/26/19 21:29 21:29 WBC 12.1 H RBC 4.11 L Hgb 12.7 L Hct 37.5 L Lymph % (Auto) 12.2 L Absolute Neuts (auto) 9.8 H Seg Neutrophils % 81.3 H Potassium 3.5 L Chloride 113 H Carbon Dioxide 19 L Glucose 114 H Calcium 7.2 L Creatine Kinase 44 L Total Protein 5.1 L Albumin 3.2 L Salicylates < 1.0 L Acetaminophen < 10 L - EKG Interpretation by Me Additional EKG results interpreted by me: Sinus rhythm with a rate of 84. QTc 407. Normal axis. No T wave inversions or ST segment changes in consecutive leads. Discharge - Discharge Clinical Impression: Amphetamine abuse, Tachycardia Condition: Stable Disposition: HOME, SELF-CARE Additional Instructions: Amphetamine Abuse Amphetamines are addicting stimulants. Amphetamines overstimulate the nervous system and give a false feeling of power and mastery. These drugs may be obtained as prescription pills for weight loss, narcolepsy, or attention-deficit disorder. More often they're bought as an illegal street drug, methamphetamine (crank, crystal, speed). Using amphetamines repeatedly can lead to serious medical problems including malnutrition, severe depression, and paranoia. It can take increasing amounts to feel good. Eventually, there will be a "burn out." When you go off amphetamines there is a period of depression that may last for weeks or even months. High doses of amphetamines can cause seizures, confusion, hallucinations, delusions, high blood pressure, muscle damage, heart damage, or sudden . Many times these deadly complications occur even with "normal" doses. Injection of amphetamines is risky for abscesses, endocarditis (heart infection), pneumonia, and AIDS. Withdrawal from amphetamines often causes anxiety, depression, and drug cravings. Some users become paranoid and psychotic. There may be cramps, nausea, and vomiting. Many treatment programs are available, but you must make the decision to quit. Medication can be prescribed to control the symptoms of amphetamine toxicity (beta blockers or benzodiazepines). Withdrawal symptoms may require tranquilizers. Referrals: MILTON BUCKNER NP [Primary Care Provider] - Follow up as needed
[2019-11-26 21:56] LABS: ABSOLUTE EOSINOPHILS # (AUTO) 0.1 10^3/uL (0.0-0.6); ABSOLUTE LYMPHOCYTES (AUTO) 1.5 10^3/uL (0.5-4.7); ABSOLUTE MONOCYTES (AUTO) 0.7 10^3/uL (0.1-1.4); ABSOLUTE NEUT (AUTO) 9.8 10^3/uL (1.7-8.2); BASOPHILS % (AUTO) 0.2 % (0-2); EOSINOPHILS % (AUTO) 0.5 % (0-6); HEMATOCRIT 37.5 % (37.9-51.0); HEMOGLOBIN 12.7 g/dL (13.5-17.0); LYMPHOCYTES % (AUTO) 12.2 % (13-45); MEAN CORPUSCULAR HEMOGLOBIN 30.8 pg (27.0-33.4); MEAN CORPUSCULAR HGB CONC 33.8 g/dL (32.0-36.0); MEAN CORPUSCULAR VOLUME 91 fl (80-97); MONOCYTES % (AUTO) 5.8 % (3-13); PLATELET COUNT 189 10^3/uL (150-450); RED BLOOD COUNT 4.11 10^6/uL (4.35-5.55); RED CELL DISTRIBUTION WIDTH 13.1 % (11.5-14.0); SEGMENTED NEUTROPHILS % (AUTO) 81.3 % (42-78); TOTAL CELLS COUNTED % (AUTO) 100 %; WHITE BLOOD COUNT 12.1 10^3/uL (4.0-10.5)
[2019-11-26 22:17] LABS: ACETAMINOPHEN < 10 ug/mL (10-30); ALBUMIN 3.2 g/dL (3.5-5.0); ALCOHOL < 10 mg/dL (NONE DETECTED); ALKALINE PHOSPHATASE 65 U/L (38-126); ANION GAP 9 (5-19); ASPARTATE AMINO TRANSFERASE 21 U/L (17-59); BILIRUBIN,DIRECT 0.2 mg/dL (0.0-0.4); BILIRUBIN,TOTAL 0.4 mg/dL (0.2-1.3); BLOOD UREA NITROGEN 13 mg/dL (7-20); CALCIUM 7.2 mg/dL (8.4-10.2); CARBON DIOXIDE 19 mmol/L (22-30); CHLORIDE 113 mmol/L (98-107); CREATINE KINASE 44 U/L (55-170); GLUCOSE 114 mg/dL (75-110); POTASSIUM 3.5 mmol/L (3.6-5.0); SALICYLATE < 1.0 mg/dL (2.0-20.0); TOTAL PROTEIN 5.1 g/dL (6.3-8.2)
--- NOTE | 2019-11-26 22:27 | RADIOLOGY REPORT (SQ) ---
EXAM DESCRIPTION: XR CHEST 1 VIEW COMPLETED DATE/TME: 11/26/2019 21:36 CLINICAL HISTORY: 59 years, Male, tachycardia COMPARISON: CT chest 08/01/2016. TECHNIQUE: Upright portable chest x-ray FINDINGS: Cardiomediastinal silhouette is not enlarged. No acute lung pleural bone abnormalities. IMPRESSION: No acute findings in chest.
[2019-11-27] MEDS ORDERED: LORAZEPAM INJ 2 MG/1 ML VIAL IV ONE (01:28)
[2019-11-27 01:48] LABS: APPEARANCE,URINE CLEAR; BILIRUBIN,URINE NEGATIVE (NEGATIVE); COLOR,URINE YELLOW; GLUCOSE, URINE NEGATIVE (NEGATIVE); KETONES,URINE NEGATIVE (NEGATIVE); LEUKOCYTE ESTERASE,URINE NEGATIVE (NEGATIVE); NITRITE,URINE NEGATIVE (NEGATIVE); PROTEIN,URINE NEGATIVE (NEGATIVE); URINE SPECIFIC GRAVITY 1.017; UROBILINOGEN,URINE NEGATIVE mg/dL (<2.0)
[2019-11-27 01:55] LABS: URINE BARBITURATES SCREEN NEGATIVE; URINE BENZODIAZEPINES SCREEN NEGATIVE; URINE COCAINE SCREEN NEGATIVE; URINE METHADONE SCREEN NEGATIVE; URINE PHENCYCLIDINE SCREEN NEGATIVE
[2019-11-27 02:00] LABS: URINE AMPHETAMINES SCREEN UNCONFIRMED POSITIVE; URINE MARIJUANA (THC) SCREEN UNCONFIRMED POSITIVE
[2019-11-27 06:51] VITALS: BP 170/90
--- NOTE | 2019-11-28 00:50 | EKG REPORT ---
SEVERITY:- NORMAL ECG - SINUS RHYTHM : Confirmed by: Arlet Chapman MD 28-Nov-2019 00:49:10
== END 2019-11-27 07:10 | disposition home or self-care (01) ==
LOC: ER 21:05
DX: F15.10 Other stimulant abuse, uncomplicated (principal); F41.9 Anxiety disorder, unspecified; F32.9 Major depressive disorder, single episode, unspecified; R00.0 Tachycardia, unspecified; R42 Dizziness and giddiness; T81.49XA Infection following a procedure, other surgical site, initial encounter; Y83.9 Surgical procedure, unspecified as the cause of abnormal reaction of the patient, or of later complication, without mention of misadventure at the time of the procedure; D72.829 Elevated white blood cell count, unspecified; R61 Generalized hyperhidrosis; E11.9 Type 2 diabetes mellitus without complications; Z79.899 Other long term (current) drug therapy
CPT/HCPCS: 93005; 99285; 96361; 96374; 96375; 36415; 80307 ×4; 82550; 85025; 80053; 81001; 71045; 93010; J2060 ×2; J7030

== ENCOUNTER 2020-03-04 10:08 | Emergency (ER) | payer OTHER, MEDICARE ==
[2020-03-04] MEDS ORDERED: DIPH/PERTUSS(ACELL)/TETANUS VAC/PF 0.5 ML SYR (>=10YO) IM ONE ×2 (11:25→14:00)
[2020-03-04] MEDS ORDERED: CEPHALEXIN 500 MG CAPSULE PO ONE ×2 (11:26→14:00)
--- NOTE | 2020-03-04 11:29 | ER Document Report ---
ED Medical Screen (RME) - General Chief Complaint: Laceration Stated Complaint: LACERATION Time Seen by Provider: 03/04/20 11:25 Primary Care Provider: MILTON BUCKNER NP [Primary Care Provider] - Follow up as needed Notes: HPI: 60-year-old male who is right-hand dominant presenting for injury to the right thumb versus a router last night. Sustained a laceration to the thumb, not sure if he is up-to-date on his tetanus vaccination PHYSICAL EXAMINATION: There is a complex macerated laceration on the dorsal aspect of the thumb with nail and nailbed involvement I have greeted and performed a rapid initial assessment of this patient. A comprehensive ED assessment and evaluation of the patient, analysis of test results and completion of medical decision making process will be conducted by an additional ED providers. Please note that clinical decision making for this patient was made during the 2019 pandemic of novel coronavirus which caused a significant strain on the healthcare system including at this particular facility. Criteria for admission discharge and level of care decisions as well as treatment decisions have necessarily changed TRAVEL OUTSIDE OF THE [place] IN LAST 30 DAYS: No - Related Data Allergies/Adverse Reactions: No Known Allergies Allergy (Verified 08/01/16 10:33) Past Medical History - Social History Family history: Reviewed & Not Pertinent - Past Medical History Cardiac Medical History: Reports: Hx Hypercholesterolemia Denies: Hx Coronary Artery Disease, Hx Heart Attack, Hx Hypertension Pulmonary Medical History: Reports: Hx Pneumonia Denies: Hx Asthma, Hx Bronchitis, Hx COPD Neurological Medical History: Denies: Hx Cerebrovascular Accident, Hx Seizures Endocrine Medical History: Reports: Hx Diabetes Mellitus Type 2 Renal/ Medical History: Denies: Hx Peritoneal Dialysis GI Medical History: Reports: Hx Gastroesophageal Reflux Disease Musculoskeltal Medical History: Reports Hx Arthritis Psychiatric Medical History: Reports: Hx Depression, Hx Post Traumatic Stress Disorder Past Surgical History: Reports: Hx Cholecystectomy, Hx Orthopedic Surgery - BACK X2. Denies: Hx Pacemaker - Immunizations Hx Diphtheria, Pertussis, Tetanus Vaccination: Yes Physical Exam - Vital signs Vitals: Temp Pulse Resp BP Pulse Ox 97.9 F 87 18 154/78 H 99 03/04/20 10:37 03/04/20 10:37 03/04/20 10:37 03/04/20 10:37 03/04/20 10:37 Course - Vital Signs Vital signs: Temp Pulse Resp BP Pulse Ox 97.9 F 87 18 154/78 H 99 03/04/20 10:37 03/04/20 10:37 03/04/20 10:37 03/04/20 10:37 03/04/20 10:37 Doctor's Discharge - Discharge Referrals: MILTON BUCKNER CONSUMER LENDER [Primary Care Provider] - Follow up as needed
--- NOTE | 2020-03-04 11:59 | RADIOLOGY REPORT (SQ) ---
EXAM DESCRIPTION: FINGER RIGHT IMAGES COMPLETED DATE/TIME: 03/04/2020 11:45 am REASON FOR STUDY: right thumb COMPARISON: None. NUMBER OF VIEWS: Three views. TECHNIQUE: AP, lateral, and oblique images acquired of the right thumb. LIMITATIONS: None. FINDINGS: MINERALIZATION: Normal. BONES: No displaced fracture or dislocation. There are a few small radiopaque densities adjacent to the base of the distal phalanx probably representing tiny bony fragments. No worrisome bone lesions. SOFT TISSUES: Dorsal distal soft tissue deformity. OTHER: No other significant finding. IMPRESSION: NO DISPLACED FRACTURE OR DISLOCATION. PROBABLE TINY BONY FRAGMENTS ADJACENT TO THE BASE OF THE DISTAL PHALANX. COMMENT: SITE OF TRAUMA/COMPLAINT MARKED/STAMP COMPLETED: YES. TECHNICAL DOCUMENTATION: JOB ID: [id number] [employer]- All Rights Reserved Reading location - IP/workstation name: [email or web address]
[2020-03-04] MEDS ORDERED: LIDOCAINE 2% INJ (20 MG/ML) 20 ML MDV INJ ONE (16:09)
--- NOTE | 2020-03-04 16:15 | ER Document Report ---
ED General - General TRAVEL OUTSIDE OF THE [place] IN LAST 30 DAYS: No - Related Data Home Medications: Adderral, Zolpidem, Omeprazole, Citalopram, Rosuvastatin, Lamotrigine <MARIA INES BAL - Last Filed: 03/04/20 17:32> - General Mode of Arrival: Ambulatory Information source: Patient TRAVEL OUTSIDE OF THE [place] IN LAST 30 DAYS: No <JOO JONES Eryn - Last Filed: 03/05/20 10:00> - General Chief Complaint: Laceration Stated Complaint: LACERATION Time Seen by Provider: 03/04/20 11:25 Primary Care Provider: MILTON BUCKNER NP [NURSE PRACTITIONER] - Follow up as needed XUAN BOLTON DO [ACTIVE STAFF] - Follow up as needed - HPI Notes: Patient is a 60-year-old male who presents to the emergency department for evaluation. He is right-hand dominant, was using a router last evening when he slipped, damaging his thumb. He was planning to go to the [facility] as it was emergent he was concerned about the cost, but he presents here to the ED for further evaluation. He is unsure of his last tetanus shot. He states his pain is currently a 5 out of 5, he was taking Tylenol relieve his pain prior to arrival. (MARIA INES BAL) - Related Data Allergies/Adverse Reactions: No Known Allergies Allergy (Verified 08/01/16 10:33) Past Medical History - General Information source: Patient - Social History Smoking Status: Never Smoker Family History: Reviewed & Not Pertinent - Past Medical History Cardiac Medical History: Reports: Hx Hypercholesterolemia, Hx Hypertension Denies: Hx Coronary Artery Disease, Hx Heart Attack Pulmonary Medical History: Reports: Hx Pneumonia Denies: Hx Asthma, Hx Bronchitis, Hx COPD Neurological Medical History: Denies: Hx Cerebrovascular Accident, Hx Seizures Renal/ Medical History: Denies: Hx Kidney Stones, Hx Peritoneal Dialysis, Hx Renal Insufficiency Malignancy Medical History: Reports None GI Medical History: Reports: Hx Gastroesophageal Reflux Disease Musculoskeletal Medical History: Reports Hx Arthritis Psychiatric Medical History: Reports: Hx Depression, Hx Post Traumatic Stress Disorder Past Surgical History: Reports: Hx Cholecystectomy, Hx Orthopedic Surgery - BACK X2. Denies: Hx Pacemaker - Immunizations Hx Diphtheria, Pertussis, Tetanus Vaccination: Yes <MARIA INES BAL - Last Filed: 03/04/20 17:32> - Social History Family History: Reviewed & Not Pertinent <JOO JONES - Last Filed: 03/05/20 10:00> Review of Systems - Review of Systems Constitutional: No symptoms reported EENT: No symptoms reported Cardiovascular: No symptoms reported Respiratory: No symptoms reported Gastrointestinal: No symptoms reported Genitourinary: No symptoms reported Musculoskeletal: See HPI Skin: See HPI Neurological/Psychological: No symptoms reported <NAVEENFLORENTINOMARIA INES Ricardo - Last Filed: 03/04/20 17:32> Physical Exam <MARIA INES BAL - Last Filed: 03/04/20 17:32> - Vital signs Vitals: Temp Pulse Resp BP Pulse Ox 97.9 F 87 18 154/78 H 99 03/04/20 10:37 03/04/20 10:37 03/04/20 10:37 03/04/20 10:37 03/04/20 10:37 - Notes Notes: There is a very pleasant 60-year-old male who appears stated age no acute distress. He is pleasant, cooperative with examiner. Physical exam is limited to the area of chief complaint. Examination of the right upper extremity yields obvious significant soft tissue damage to the right thumb. No other abnormality to visual inspection. On inspection of the right thumb, patient has significant tissue maceration that traverses across the base of the nail, likely disrupting the nail matrix. This is distal to the interphalangeal joint. Patient has disruption of the nail in the distal aspect of the dorsal side, with superficial tissue missing noted. There is some nailbed tissue and skin in need of debridement. On the palmar aspect of the thumb and the mid aspect of the distal phalanx there is further significant maceration and loss of tissue. Sensation is mildly diminished to the distal tip of the thumb but is otherwise intact. Patient has some difficulty with range of motion of the interphalangeal joint but has full opposition of the thumb. (MARIA INES BAL) Course - Laboratory Results Critical Laboratory Results Reviewed: No Critical Results <OZIELLAURAMAGGI Ricardo - Last Filed: 03/04/20 17:32> - Laboratory Results Critical Laboratory Results Reviewed: No Critical Results - Radiology Results Critical Radiology Results Reviewed: No Critical Results <JOO JONES Eryn - Last Filed: 03/05/20 10:00> - Re-evaluation Re-evalutation: 03/04/20 16:13 Patient presents emergency department for evaluation. He was initially seen through triage. He had x-ray, antibiotics, tetanus updated. The wound shows significant damage, at this time I do not see any evidence of the laceration that actually need sutured. A block will be performed, the area will be thoroughly cleansed, debrided as necessary. Will likely then does require heavy bandaging and a thumb spica splint will be in place secondary to small fractures noted. Will refer on to orthopedics. 03/04/20 17:32 Patient tolerated blocking procedure of debridement well. Will be placed in thumb spica splint and discharged. (MARIA INES BAL) - Vital Signs Vital signs: Temp Pulse Resp BP Pulse Ox 97.8 F 78 18 148/87 H 99 03/04/20 18:10 03/04/20 18:10 03/04/20 18:10 03/04/20 18:10 03/04/20 18:10 - Radiology Results Radiology Results Interpreted: 03/04/20 16:14 Finger X-Ray 03/04/20 11:25 IMPRESSION: NO DISPLACED FRACTURE OR DISLOCATION. PROBABLE TINY BONY FRAGMENTS ADJACENT TO THE BASE OF THE DISTAL PHALANX. (MARIA INES BAL) Procedures - Laceration/Wound Repair Right Thumb Time completed: 17:40 Wound length (cm): 3 - macerated thumb Wound's Depth, Shape: Irregular Laceration pre-procedure: Shur-Clens applied Anesthetic type: 2% Lidocaine Irrigated w/ Saline (mLs): 4 - mL finger block Wound Debrided: Moderate Post-procedure wound care: Sterile dressing applied, Splint applied Post-procedure NV exam normal: Yes Complications: No <JOO JONES - Last Filed: 03/05/20 10:00> - Laceration/Wound Repair Right Thumb Notes: 03/04/20 18:11 Dr. Oziel MD already evaluated patient, no sutures are indicated at this time patient given verbal consent to debride wound. Finger block with 2% lidocaine without epinephrine to right thumb. Patient anesthetized adequately.wound debrided without incident. Patient tolerated procedure without incident. (JOO JONES) Discharge <MARIA INES BAL - Last Filed: 03/04/20 17:32> <JOO JONES - Last Filed: 03/05/20 10:00> - Discharge Clinical Impression: Fracture of thumb, right open, Soft tissue damage right thumb Condition: Stable Disposition: HOME, SELF-CARE Instructions: Antibiotic Ointment Protection ([facility]), Oral Narcotic Medication ([facility]), Prophylactic Antibiotic ([facility]), Tetanus Immunization Given ([facility]) Additional Instructions: Take antibiotics as prescribed, starting this evening. Call Dr. Bolton's office for a follow-up appointment, you need to be seen early next week. Worthing as needed for severe pain, please watch for dizziness, drowsiness, constipation with this medication. Keep splint in place, do not get wet. If you develop worsening or new concerning symptoms of any sort, please return immediately to the emergency department for evaluation. Prescriptions: Hydrocodone/Acetaminophen [Worthing 5-325 mg Tablet] 1 tab PO Q6HP PRN #10 tablet PRN Reason: For Pain Scale 4-5 Cephalexin Monohydrate [Keflex 500 mg Capsule] 500 mg PO TID #20 capsule Referrals: MILTON BUCKNER NP [NURSE PRACTITIONER] - Follow up as needed XUAN BOLTON DO [ACTIVE STAFF] - Follow up as needed
[2020-03-04 18:11] VITALS: BP 148/87
== END 2020-03-04 18:10 | disposition home or self-care (01) ==
LOC: ER 10:08
DX: S62.524B Nondisplaced fracture of distal phalanx of right thumb, initial encounter for open fracture (principal); W29.8XXA Contact with other powered hand tools and household machinery, initial encounter; E78.00 Pure hypercholesterolemia, unspecified; E11.9 Type 2 diabetes mellitus without complications; I10 Essential (primary) hypertension; Z23 Encounter for immunization; Z90.49 Acquired absence of other specified parts of digestive tract
CPT/HCPCS: 99283; 90471; 73140; 90715; 12042; J3490